=== PATIENT | male | born 1975 | race Caucasian/White ===

== ENCOUNTER 2016-10-04 22:47 | Emergency (ER) | payer SELFPAY ==
--- NOTE | 2016-10-04 23:11 | ED CLINICAL REPORT ---
Clinical Report - Physicians/Mid Levels [facility] [address] [place] [address] 10/04/2016 22:48 Patient: REBEKAH FERRIS Time Seen: 22:54; initial patient contact. Arrived- By private vehicle. Historian- patient. HISTORY OF PRESENT ILLNESS Chief Complaint: Injury to the right great toe. The injury happened about 1 month ago. (unk). Occurred at home. Patient is experiencing mild pain. Patient denies injury to the head or neck. REVIEW OF SYSTEMS No swelling, tingling, numbness, suspected foreign body or skin laceration. He has no pain on weight bearing. All systems otherwise negative, except as recorded above. PAST HISTORY Negative. SURGERIES: Ankle repair. Hernia Repair. Problems: no known problems. Medications: None. Allergies: No Known Drug Allergy. SOCIAL HISTORY Occasional alcohol use. History of drug use: marijuana. ADDITIONAL NOTES The nursing notes have been reviewed. PHYSICAL EXAM Vital Signs: 10/04/2016 22:53 BP: 135/68. HR: 80. RR: 18. O2 saturation: 100%. Temp: 98.1 F. Pain level now: 6/10. Have been reviewed as normal. Appearance: Alert. Oriented X3. No acute distress. Skin: Skin intact. Skin warm and dry. Extremities: Right great toe: mild tenderness of the medial aspect and nail bed. No erythema, swelling, laceration, ecchymosis or puncture wound. No foreign body or deformity. No limitation in movement. No subungual hematoma. No foot injury. No ankle injury. Foot and ankle exam otherwise negative. Extremities otherwise negative. Gait: Normal gait. Neuro: Oriented X 3. PROGRESS AND PROCEDURES Disposition: Discharged home in good and improved condition. Condition: good. CLINICAL IMPRESSION Ingrown toenail right great toe. INSTRUCTIONS Your Current Medications: CONTINUE TAKING THE FOLLOWING MEDICATIONS: None*. Follow-up: Follow up with your doctor as needed. Call for an appointment. Screening today revealed the patient's blood pressure to be in the pre-hypertensive range. The patient should follow up with a primary care provider for blood pressure management. (Electronically signed by Riccardo Mathis Dr. 10/05/2016 1:48)
--- NOTE | 2016-10-04 23:11 | ED NURSING NOTES ---
Clinical Report - Nurses [facility] [address] [place] [address] 10/04/2016 22:48 Patient: REBEKAH FERRIS TRIAGE Triage time 22:51. Acuity: LEVEL 4. Chief Complaint: RIGHT LOWER EXTREMITY PAIN and REDNESS. --22:59 Kia Ozuna R.N. 22:53 10/04/16. BP: 135/68. HR: 80. RR: 18. O2 saturation: 100%. Temp: 98.1 F (oral). Pain level now: 10/22. --22:59 Kia Ozuna R.N. Weight: 90.7 kg stated. Height/Length: 72 inches Per Patient. BMI: 27.1. --22:54 Kia Ozuna R.N. Medications None. --22:56 Kia Ozuna R.N. Allergies No Known Drug Allergy. --22:56 Kia Ozuna R.N. History Arrived by private vehicle. Historian: patient. Accompanied by friend. Primary physician (none). This occurred just prior to arrival (1 months). ( pt reports odor today, however pain for last month inside of right great toe,). PAST MEDICAL HX: Tetanus status: up-to-date. Immunizations: up-to-date. SOCIAL HX: Heavy tobacco smoker (cigarette)- less than 1 pack per day. History of tobacco use. Occasional alcohol use; consumes one beer a week. History of occasional drug use: marijuana. Recently used drugs yesterday. The patient has not traveled outside the [place] The patient was not exposed to tuberculosis, influenza, chicken pox, meningitis, MRSA, VRE, C-diff, SARS, Noah flu, H1N1 flu, Ebola or MERS. ABUSE ASSESSMENT: No report of abuse. SELF HARM ASSESSMENT: A self harm assessment was performed. The patient answered "no" to the question "Have you recently felt down, depressed, or hopeless?", "Have you noticed less interest or pleasure in doing things?", "Do you have thoughts of harming or killing yourself?", "Are you here because you tried to hurt yourself?", "Have you ever tried to hurt yourself before today?", "Have you recently had thoughts about harming or killing others?" and "Do you have any dangerous items in your possession?". FALL RISK ASSESSMENT: Fall risk assessment completed. No fall risk identified. NUTRITIONAL RISK ASSESSMENT: The nutritional risk assessment revealed no deficiencies. FUNCTIONAL ASSESSMENT: Functional assessment: no impairments noted. LEARNING NEEDS ASSESSMENT: The learning needs assessment revealed no barriers. SKIN INTEGRITY ASSESSMENT: Skin integrity risk assessment completed. No skin integrity risk identified. --22:59 Kia Ozuna R.N. PROBLEMS: no known problems. ADDITIONAL SURGERIES: Ankle repair. Hernia Repair. --22:56 Kia Ozuna R.N. Interventions ID band on patient. --22:59 Kia Ozuna R.N. PHYSICAL ASSESSMENT Ambulatory to room. GENERAL / NEURO / PSYCH: Oriented X 4. Alert. Appears in no acute distress. EXTREMITIES: Small area of erythema with tenderness on the extremities (right great toe). Extremity pulses are within normal limits. Extremities exhibit normal ROM. Neuro-vascular status intact to the extremity. No lower extremity edema. Normal gait. Right foot: of the first toe. SKIN: Skin intact. Skin is warm and dry. --23:00 Kia Ozuna R.N. NURSING PROGRESS NOTES Two patient identifiers checked. Call light placed in reach. Side rails up x 1. Bed placed in lowest position. Brakes of bed on. --23:00 Kia Ozuna R.N. Patient ready for evaluation- chart flagged. --23:00 Kia Ozuna R.N. DISPOSITION / DISCHARGE Departure time: 2311. Condition at departure: unchanged. No learning barriers present. Discharge instructions provided and reviewed with the patient. Reviewed foot care instructions. Patient verbalized understanding. Written instructions provided in Sami. No warning instructions or medication instructions. The patient was discharged home and unaccompanied at time of discharge. He left the Emergency Department ambulatory and via private vehicle. Driving (friend). --23:21 Kia Ozuna R.N. 23:20 10/04/16. BP: deferred. HR: deferred. RR: deferred. O2 saturation: deferred. Temp: deferred. Pain level now deferred. --23:21 Kia Ozuna R.N. Locked/Released at 10/04/2016 23:21 by Kia Ozuna R.N.
--- NOTE | 2016-10-04 23:11 | ED CLINICAL REPORT ---
Clinical Report - Physicians/Mid Levels [facility] [address] [place] [place] [address] 10/04/2016 22:48 Patient: REBEKAH FERRIS Time Seen: 22:54; initial patient contact. Arrived- By private vehicle. Historian- patient. HISTORY OF PRESENT ILLNESS Chief Complaint: Injury to the right great toe. The injury happened about 1 month ago. (unk). Occurred at home. Patient is experiencing mild pain. Patient denies injury to the head or neck. REVIEW OF SYSTEMS No swelling, tingling, numbness, suspected foreign body or skin laceration. He has no pain on weight bearing. All systems otherwise negative, except as recorded above. PAST HISTORY Negative. SURGERIES: Ankle repair. Hernia Repair. Problems: no known problems. Medications: None. Allergies: No Known Drug Allergy. SOCIAL HISTORY Occasional alcohol use. History of drug use: marijuana. ADDITIONAL NOTES The nursing notes have been reviewed. PHYSICAL EXAM Vital Signs: 10/04/2016 22:53 BP: 135/68. HR: 80. RR: 18. O2 saturation: 100%. Temp: 98.1 F. Pain level now: 6/10. Have been reviewed as normal. Appearance: Alert. Oriented X3. No acute distress. Skin: Skin intact. Skin warm and dry. Extremities: Right great toe: mild tenderness of the medial aspect and nail bed. No erythema, swelling, laceration, ecchymosis or puncture wound. No foreign body or deformity. No limitation in movement. No subungual hematoma. No foot injury. No ankle injury. Foot and ankle exam otherwise negative. Extremities otherwise negative. Gait: Normal gait. Neuro: Oriented X 3. PROGRESS AND PROCEDURES Disposition: Discharged home in good and improved condition. Condition: good. CLINICAL IMPRESSION Ingrown toenail right great toe. INSTRUCTIONS Your Current Medications: CONTINUE TAKING THE FOLLOWING MEDICATIONS: None*. Follow-up: Follow up with your doctor as needed. Call for an appointment. Screening today revealed the patient's blood pressure to be in the pre-hypertensive range. The patient should follow up with a primary care provider for blood pressure management. (Electronically signed by Riccardo Mathis Dr. 10/05/2016 1:48)
--- NOTE | 2016-10-05 01:48 | ED MED RECONCILIATION SUMMARY ---
Patient: REBEKAH FERRIS Medication Reconciliation Report [facility] VisitID: [id number] [address] [place] [place] [address] 41y, M Registration Date/Time: 10/04/2016 Weight: 90.7 kg Height/Length: 72 in. BMI: 27.1 ALLERGIES: No Known Drug Allergy The patient's Home Medications are listed below: NONE. The source(s) of the original Home Medication information: Not obtained. The following Medications were given to the patient in the Emergency Department: None. The following Medications were prescribed to the patient: None.
--- NOTE | 2016-10-05 01:48 | ED MAR SUMMARY ---
..... Medication Administration Record [facility] [address] [place], [place] [id number] Patient: REBEKAH FERRIS Visit ID: [id number] 41y, M Weight: 90.7 kg Height/Length: 72 in BMI: 27.1 ALLERGIES: No Known Drug Allergy
--- NOTE | 2016-10-05 01:48 | ED DISCHARGE INSTRUCTIONS ---
Patient: REBEKAH FERRIS General Instructions [facility] VisitID: [id number] [place] [address] 41y, M Registration Date/Time: 10/04/2016 Ingrown toenail right great toe. INSTRUCTIONS Your Current Medications: CONTINUE TAKING THE FOLLOWING MEDICATIONS: None*. Follow-up: Follow up with your doctor as needed. Call for an appointment. Screening today revealed the patient's blood pressure to be in the pre-hypertensive range. The patient should follow up with a primary care provider for blood pressure management. ADDITIONAL INFORMATION Ingrown Toenail, Not Infected (Home Treatment) An ingrown toenail occurs when the nail grows sideways into the skin alongside the nail. This can cause pain, especially when wearing tight shoes. It can also lead to an infection with redness, swelling, and pus drainage. Home care The following guidelines will help you care for your toenail at home: Run warm water over the painful toe twice a day for 10 to 20 minutes each time. Wash the entire foot with an antibacterial soap. If there is redness or swelling around the toenail, apply an antibiotic ointment three times a day. Insert a small piece of rolled-up cotton under the corner of the nail to promote growth of the nail outward, away from the cuticle. Wear shoes that do not put pressure on the toesa sandal or open shoe. If a closed shoe is used, it should have enough room for the toes so that there is no squeezing or pressure on the painful toe. You may use acetaminophen or ibuprofen for pain unless another pain medicine was prescribed.If you have chronic liver or kidney disease or ever had a stomach ulcer or GI bleeding, talk with your doctor before using these medicines. Prevention The following will help you prevent ingrown toenails: Avoid pointed, tight, or narrow shoes. Trim toenails once a month so they dont grow too long. Cut the nail straight across. Follow-up care Follow up with your doctor or this facility if your pain has not improved with the above treatment after two weeks. When to seek medical care Get prompt medical attention if any of the following occur: Increasing redness, pain or swelling of the toe Tender red streaks in the skin leading toward the ankle Pus or fluid drainage from the toe Fever over 100.4F (38.0C) You have been given the following additional information: Ingrown Toenail, No Infect ([facility]) (Electronically signed by Riccardo Mathis Dr. 10/05/2016 1:48)
--- NOTE | 2016-10-05 01:48 | ED MED RECONCILIATION SUMMARY ---
Patient: REBEKAH FERRIS Medication Reconciliation Report [facility] VisitID: [id number] [address] [place] [address] 41y, M Registration Date/Time: 10/04/2016 Weight: 90.7 kg Height/Length: 72 in. BMI: 27.1 ALLERGIES: No Known Drug Allergy The patient's Home Medications are listed below: NONE. The source(s) of the original Home Medication information: Not obtained. The following Medications were given to the patient in the Emergency Department: None. The following Medications were prescribed to the patient: None.
--- NOTE | 2016-10-05 01:48 | ED MAR SUMMARY ---
..... Medication Administration Record [facility] [address], [place] [id number] Patient: REBEKAH FERIRS Visit ID: [id number] 41y, M Weight: 90.7 kg Height/Length: 72 in BMI: 27.1 ALLERGIES: No Known Drug Allergy
== END 2016-10-04 23:12 | disposition home or self-care (01) ==
LOC: ED SRH 22:47
DX: L60.0 Ingrowing nail (principal); X58.XXXA Exposure to other specified factors, initial encounter; Y93.9 Activity, unspecified; Y99.9 Unspecified external cause status; Y92.009 Unspecified place in unspecified non-institutional (private) residence as the place of occurrence of the external cause